=== PATIENT | male | born 1935 | race Caucasian/White ===

== ENCOUNTER 2018-01-12 14:00 | Inpatient (IN) | payer MEDICARE, OTHER ==
[~2018-01-12] VITALS: Ht 177.8 cm; Wt 83.9 kg
[2018-01-12 14:15] VITALS: BP 156/76
[2018-01-12 16:15] VITALS: BP 156/76
[2018-01-12] MEDS ORDERED: ACETAMINOPHEN 325 MG TABLET PO PRN (16:15)
[2018-01-12] MEDS: MetFORMIN HCL 500 MG TABLET PO SCH (20:18)
[2018-01-12] MEDS: ATORVASTATIN CALCIUM 40 MG TABLET PO SCH (20:19)
[2018-01-12] MEDS: DOCUSATE SODIUM 100 MG CAPSULE PO SCH (20:19)
[2018-01-12] MEDS: SENNA 187 MG TABLET PO SCH (20:19)
[2018-01-12] MEDS: ALFUZOSIN HCL 10 MG ER TABLET PO SCH (20:20)
[2018-01-12 21:15] LABS: APPEARANCE,URINE CLEAR (CLEAR); BILIRUBIN,URINE NEGATIVE (NEGATIVE); GLUCOSE, URINE (UA) NEGATIVE (NEGATIVE); KETONES,URINE TRACE mg/dL (NEGATIVE); LEUKOCYTE ESTERASE ,URINE NEGATIVE (NEGATIVE); NITRATE,URINE NEGATIVE (NEGATIVE); OCCULT BLOOD,URINE NEGATIVE (NEGATIVE); PROTEIN,URINE NEGATIVE (NEGATIVE); UROBILINOGEN,URINE 0.2 mg/dL (<=1.0)
[2018-01-12] MEDS ORDERED: DEXTROSE 50%-WATER 25 GM/50 ML SYRINGE IVP PRN (21:45)
[2018-01-12 23:03] LABS: GLUCOMETER DEV NAME(LOC) 2WR 1B; GLUCOSE,POINT OF CARE 113 MG/DL (70-110)
[2018-01-12 23:03] LABS: GLUCOMETER DEV NAME(LOC) 2WR 1B; GLUCOSE,POINT OF CARE 128 MG/DL (70-110)
[2018-01-13] MEDS ORDERED: MINERAL OIL/PETROLATUM 120 GM CREAM TP PRN (01:30)
[2018-01-13 03:00] VITALS: BP 150/83
[2018-01-13] MEDS: DOCUSATE SODIUM 283 MG/5 ML MINI-ENEMA PR PRN (05:40)
[2018-01-13 05:54] LABS: GLUCOMETER DEV NAME(LOC) 2WR 2E; GLUCOSE,POINT OF CARE 98 MG/DL (70-110)
[2018-01-13 06:56] LABS: BASOPHILS % (AUTO) 1.5 % (0.0-2.0); EOSINOPHILS % (AUTO) 2.9 % (1.0-6.0); HEMATOCRIT 44.5 % (41-53); HEMOGLOBIN 15.2 g/dL (13.5-17.5); LYMPHOCYTES # (AUTO) 1.3 K/uL (1.0-4.8); LYMPHOCYTES % (AUTO) 17.3 % (22.0-44.0); MEAN CORPUSCULAR HEMOGLOBIN 31.9 pg (26.0-34.0); MEAN CORPUSCULAR HGB CONC 34.1 G/dL (31.0-37.0); MEAN CORPUSCULAR VOLUME 94 fL (80-100); MONOCYTES # (AUTO) 0.9 K/uL (0.1-1.0); NEUTROPHILS # (AUTO) 5.2 K/uL (1.8-7.7); NEUTROPHILS % (AUTO) 66.3 % (40.0-70.0); PLATELET COUNT (AUTO) 246 K/uL (150-450); RED BLOOD CELL COUNT(AUTO) 4.76 MIL/uL (4.50-5.90); RED CELL DISTRIBUTION WIDTH 13.6 % (11.5-14.5)
[2018-01-13 07:38] LABS: ALANINE AMINOTRANSFERASE 28 U/L (12-78); ALBUMIN 3.2 g/dL (3.4-5.0); ALKALINE PHOSPHATASE 70 U/L (46-116); ANION GAP 9 mmol/L (8-16); ASPARTATE AMINOTRANSFERASE 27 U/L (15-37); BILIRUBIN,TOTAL 1.4 mg/dL (0.1-1.0); CALCIUM, TOTAL 8.8 mg/dL (8.8-10.5); CARBON DIOXIDE 27 mmol/L (22-29); CHLORIDE 105 mmol/L (98-107); CREATININE 1.01 mg/dL (0.60-1.30); GLUCOSE,RANDOM 117 mg/dL (70-110); POTASSIUM 3.7 mmol/L (3.5-5.1); SODIUM SERUM 141 mmol/L (136-145); TOTAL PROTEIN, SERUM 6.6 g/dL (6.4-8.2); UREA NITROGEN, BLOOD 11 mg/dL (7-18)
[2018-01-13 07:41] LABS: GLOMERULAR FILTR. RATE CALC > 60 mL/min (>60)
[2018-01-13 08:03] VITALS: BP 162/83
[2018-01-13] MEDS: PANTOPRAZOLE SODIUM 40 MG DR TABLET PO SCH (08:13)
[2018-01-13] MEDS: DOCUSATE SODIUM 100 MG CAPSULE PO SCH ×2 (08:13→20:16)
[2018-01-13] MEDS: MetFORMIN HCL 500 MG TABLET PO SCH ×2 (08:13→17:57)
[2018-01-13] MEDS: CLOPIDOGREL BISULFATE 75 MG TABLET PO SCH (08:13)
[2018-01-13] MEDS: ASPIRIN 81 MG CHEWABLE TABLET PO SCH (08:13)
[2018-01-13] MEDS: ONDANSETRON HCL 4 MG TABLET PO PRN (09:28)
[2018-01-13 12:18] LABS: GLUCOMETER DEV NAME(LOC) 2WR 2E; GLUCOSE,POINT OF CARE 123 MG/DL (70-110)
[2018-01-13 12:28] VITALS: BP 145/77
[2018-01-13 15:00] VITALS: BP 142/86
[2018-01-13 18:44] LABS: GLUCOMETER DEV NAME(LOC) 2WR 2E; GLUCOSE,POINT OF CARE 104 MG/DL (70-110)
[2018-01-13] MEDS: ALFUZOSIN HCL 10 MG ER TABLET PO SCH (20:16)
[2018-01-13] MEDS: SENNA 187 MG TABLET PO SCH (20:16)
[2018-01-13] MEDS: ATORVASTATIN CALCIUM 40 MG TABLET PO SCH (20:16)
[2018-01-13] MEDS: INSULIN LISPRO 100 UNITS/ML SQ PRN (20:20)
[2018-01-13 21:23] LABS: GLUCOMETER DEV NAME(LOC) 2WR 1B; GLUCOSE,POINT OF CARE 161 MG/DL (70-110)
[2018-01-14 05:44] VITALS: BP 136/56
[2018-01-14 06:49] LABS: GLUCOMETER DEV NAME(LOC) 2WR 2E; GLUCOSE,POINT OF CARE 127 MG/DL (70-110)
[2018-01-14 07:58] VITALS: BP 137/80
[2018-01-14] MEDS: MetFORMIN HCL 500 MG TABLET PO SCH ×2 (09:25→17:22)
[2018-01-14] MEDS: PANTOPRAZOLE SODIUM 40 MG DR TABLET PO SCH (09:25)
[2018-01-14] MEDS: DOCUSATE SODIUM 100 MG CAPSULE PO SCH ×2 (09:26→20:45)
[2018-01-14] MEDS: ASPIRIN 81 MG CHEWABLE TABLET PO SCH (09:26)
[2018-01-14] MEDS: CLOPIDOGREL BISULFATE 75 MG TABLET PO SCH (09:26)
[2018-01-14 12:39] LABS: GLUCOMETER DEV NAME(LOC) 2WR 1B; GLUCOSE,POINT OF CARE 143 MG/DL (70-110)
[2018-01-14] MEDS: INSULIN LISPRO 100 UNITS/ML SQ PRN (13:32)
[2018-01-14 15:31] VITALS: BP 146/82
[2018-01-14 18:19] LABS: GLUCOMETER DEV NAME(LOC) 2WR 2E; GLUCOSE,POINT OF CARE 117 MG/DL (70-110)
[2018-01-14] MEDS: SENNA 187 MG TABLET PO SCH (20:45)
[2018-01-14] MEDS: ALFUZOSIN HCL 10 MG ER TABLET PO SCH (20:45)
[2018-01-14] MEDS: ATORVASTATIN CALCIUM 40 MG TABLET PO SCH (20:45)
[2018-01-14 22:29] LABS: GLUCOMETER DEV NAME(LOC) 2WR 1B; GLUCOSE,POINT OF CARE 98 MG/DL (70-110)
[2018-01-15 05:20] VITALS: BP 139/76
[2018-01-15 06:09] LABS: GLUCOMETER DEV NAME(LOC) 2WR 1B; GLUCOSE,POINT OF CARE 114 MG/DL (70-110)
[2018-01-15 07:05] VITALS: BP 131/70
[2018-01-15] MEDS: DOCUSATE SODIUM 100 MG CAPSULE PO SCH (07:53)
[2018-01-15] MEDS: MetFORMIN HCL 500 MG TABLET PO SCH ×2 (07:53→17:00)
[2018-01-15] MEDS: CLOPIDOGREL BISULFATE 75 MG TABLET PO SCH (07:53)
[2018-01-15] MEDS: ASPIRIN 81 MG CHEWABLE TABLET PO SCH (07:53)
[2018-01-15] MEDS: PANTOPRAZOLE SODIUM 40 MG DR TABLET PO SCH (07:54)
[2018-01-15] MEDS: ONDANSETRON HCL 4 MG TABLET PO PRN (10:12)
[2018-01-15 10:40] VITALS: BP 156/75
[2018-01-15 12:30] VITALS: BP 124/74
[2018-01-15 12:48] LABS: GLUCOMETER DEV NAME(LOC) 2WR 1B; GLUCOSE,POINT OF CARE 131 MG/DL (70-110)
[2018-01-15 15:26] VITALS: BP 141/82
[2018-01-15 17:44] LABS: GLUCOMETER DEV NAME(LOC) 2WR 1B; GLUCOSE,POINT OF CARE 113 MG/DL (70-110)
[2018-01-15] MEDS: ATORVASTATIN CALCIUM 40 MG TABLET PO SCH (20:45)
[2018-01-15] MEDS: DOCUSATE SODIUM 250 MG CAPSULE PO SCH (20:45)
[2018-01-15] MEDS: ALFUZOSIN HCL 10 MG ER TABLET PO SCH (20:45)
[2018-01-15] MEDS: SENNA 187 MG TABLET PO SCH (20:45)
[2018-01-15 21:43] LABS: GLUCOMETER DEV NAME(LOC) 2WR 1B; GLUCOSE,POINT OF CARE 124 MG/DL (70-110)
[2018-01-16] MEDS ORDERED: ALFU10TA30 PO (02:25)
[2018-01-16] MEDS ORDERED: METO25 PO (02:25)
[2018-01-16] MEDS ORDERED: CALC-877 PO (02:25)
[2018-01-16] MEDS ORDERED: ATOR40TA28 PO (02:25)
[2018-01-16] MEDS ORDERED: METF-960 PO (02:25)
[2018-01-16] MEDS ORDERED: PANT40TA25 PO (02:25)
[2018-01-16] MEDS ORDERED: ERGO400C PO (02:25)
[2018-01-16] MEDS ORDERED: ASPI-1188 PO (02:25)
[2018-01-16] MEDS ORDERED: CLOP75 PO (02:25)
[2018-01-16] MEDS: DOCUSATE SODIUM 283 MG/5 ML MINI-ENEMA PR PRN (05:44)
[2018-01-16 05:48] VITALS: BP 126/71
[2018-01-16 05:59] LABS: GLUCOMETER DEV NAME(LOC) 2WR 1B; GLUCOSE,POINT OF CARE 99 MG/DL (70-110)
[2018-01-16] MEDS: ONDANSETRON HCL 4 MG TABLET PO PRN ×3 (06:15→15:57)
[2018-01-16 07:35] VITALS: BP 137/70
[2018-01-16] MEDS: CLOPIDOGREL BISULFATE 75 MG TABLET PO SCH (08:22)
[2018-01-16] MEDS: ASPIRIN 81 MG CHEWABLE TABLET PO SCH (08:22)
[2018-01-16] MEDS: MetFORMIN HCL 500 MG TABLET PO SCH ×2 (08:22→17:23)
[2018-01-16] MEDS: PANTOPRAZOLE SODIUM 40 MG DR TABLET PO SCH (08:22)
[2018-01-16] MEDS: DOCUSATE SODIUM 250 MG CAPSULE PO SCH ×2 (08:22→20:10)
[2018-01-16 10:50] VITALS: BP 122/69
[2018-01-16] MEDS: MECLIZINE HCL 25 MG TABLET PO PRN (10:54)
[2018-01-16 13:09] LABS: GLUCOMETER DEV NAME(LOC) 2WR 2E; GLUCOSE,POINT OF CARE 139 MG/DL (70-110)
[2018-01-16 16:18] VITALS: BP 123/73
[2018-01-16 17:49] LABS: GLUCOMETER DEV NAME(LOC) 2WR 1B; GLUCOSE,POINT OF CARE 127 MG/DL (70-110)
[2018-01-16] MEDS: ATORVASTATIN CALCIUM 40 MG TABLET PO SCH (20:10)
[2018-01-16] MEDS: SENNA 187 MG TABLET PO SCH (20:10)
[2018-01-16] MEDS: ALFUZOSIN HCL 10 MG ER TABLET PO SCH (20:10)
[2018-01-16 21:29] LABS: GLUCOMETER DEV NAME(LOC) 2WR 1B; GLUCOSE,POINT OF CARE 131 MG/DL (70-110)
[2018-01-17 06:00] VITALS: BP 122/53
[2018-01-17 06:03] LABS: GLUCOMETER DEV NAME(LOC) 2WR 2E; GLUCOSE,POINT OF CARE 96 MG/DL (70-110)
[2018-01-17 07:00] VITALS: BP 123/66
[2018-01-17] MEDS: PANTOPRAZOLE SODIUM 40 MG DR TABLET PO SCH (07:51)
[2018-01-17] MEDS: MECLIZINE HCL 25 MG TABLET PO PRN (07:51)
[2018-01-17] MEDS: DOCUSATE SODIUM 250 MG CAPSULE PO SCH ×2 (07:51→21:10)
[2018-01-17] MEDS: CLOPIDOGREL BISULFATE 75 MG TABLET PO SCH (07:51)
[2018-01-17] MEDS: MetFORMIN HCL 500 MG TABLET PO SCH ×3 (07:51→17:23)
[2018-01-17] MEDS: ASPIRIN 81 MG CHEWABLE TABLET PO SCH (07:52)
[2018-01-17 10:29] VITALS: BP 130/72
[2018-01-17 12:44] LABS: GLUCOMETER DEV NAME(LOC) 2WR 1B; GLUCOSE,POINT OF CARE 115 MG/DL (70-110)
[2018-01-17 15:36] VITALS: BP 159/80
[2018-01-17 17:44] LABS: GLUCOMETER DEV NAME(LOC) 2WR 1B; GLUCOSE,POINT OF CARE 117 MG/DL (70-110)
[2018-01-17] MEDS: ATORVASTATIN CALCIUM 40 MG TABLET PO SCH (21:10)
[2018-01-17] MEDS: SENNA 187 MG TABLET PO SCH (21:11)
[2018-01-17] MEDS: ALFUZOSIN HCL 10 MG ER TABLET PO SCH (21:11)
[2018-01-17] MEDS: INSULIN LISPRO 100 UNITS/ML SQ PRN (21:33)
[2018-01-17 21:38] LABS: GLUCOMETER DEV NAME(LOC) 2WR 1B; GLUCOSE,POINT OF CARE 153 MG/DL (70-110)
[2018-01-17 21:57] VITALS: BP 124/70
[2018-01-18 00:52] VITALS: BP 123/64
[2018-01-18 06:20] LABS: GLUCOMETER DEV NAME(LOC) 2WR 1B; GLUCOSE,POINT OF CARE 99 MG/DL (70-110)
[2018-01-18 08:10] VITALS: BP 110/74
[2018-01-18] MEDS: CLOPIDOGREL BISULFATE 75 MG TABLET PO SCH (09:14)
[2018-01-18] MEDS: ONDANSETRON HCL 4 MG TABLET PO PRN (09:14)
[2018-01-18] MEDS: PANTOPRAZOLE SODIUM 40 MG DR TABLET PO SCH (09:14)
[2018-01-18] MEDS: DOCUSATE SODIUM 250 MG CAPSULE PO SCH ×2 (09:15→21:23)
[2018-01-18] MEDS: ASPIRIN 81 MG CHEWABLE TABLET PO SCH (09:15)
[2018-01-18] MEDS: MetFORMIN HCL 500 MG TABLET PO SCH ×2 (09:15→16:57)
[2018-01-18] MEDS: INSULIN LISPRO 100 UNITS/ML SQ PRN ×3 (12:36→21:26)
[2018-01-18 13:09] LABS: GLUCOMETER DEV NAME(LOC) 2WR 2E; GLUCOSE,POINT OF CARE 117 MG/DL (70-110)
[2018-01-18 15:12] VITALS: BP 118/78
[2018-01-18 17:34] LABS: GLUCOMETER DEV NAME(LOC) 2WR 1B; GLUCOSE,POINT OF CARE 109 MG/DL (70-110)
[2018-01-18 21:15] VITALS: BP 139/82
[2018-01-18] MEDS: ALFUZOSIN HCL 10 MG ER TABLET PO SCH (21:24)
[2018-01-18] MEDS: ATORVASTATIN CALCIUM 40 MG TABLET PO SCH (21:24)
[2018-01-18] MEDS: SENNA 187 MG TABLET PO SCH (21:24)
[2018-01-18 22:49] LABS: GLUCOMETER DEV NAME(LOC) 2WR 2E; GLUCOSE,POINT OF CARE 144 MG/DL (70-110)
[2018-01-19 06:06] VITALS: BP 152/81
[2018-01-19 06:30] LABS: GLUCOMETER DEV NAME(LOC) 2WR 1B; GLUCOSE,POINT OF CARE 105 MG/DL (70-110)
[2018-01-19 07:30] VITALS: BP 116/66
[2018-01-19] MEDS: MetFORMIN HCL 500 MG TABLET PO SCH ×2 (07:54→17:33)
[2018-01-19] MEDS: DOCUSATE SODIUM 250 MG CAPSULE PO SCH ×2 (07:58→20:38)
[2018-01-19] MEDS: PANTOPRAZOLE SODIUM 40 MG DR TABLET PO SCH (07:58)
[2018-01-19] MEDS: CLOPIDOGREL BISULFATE 75 MG TABLET PO SCH (07:58)
[2018-01-19] MEDS: ASPIRIN 81 MG CHEWABLE TABLET PO SCH (07:58)
[2018-01-19] MEDS: ONDANSETRON HCL 4 MG TABLET PO PRN (09:26)
[2018-01-19 13:18] LABS: GLUCOMETER DEV NAME(LOC) 2WR 2E; GLUCOSE,POINT OF CARE 132 MG/DL (70-110)
[2018-01-19] MEDS: POLYETHYLENE GLYCOL 3350 17 GM PACKET PO SCH (15:14)
[2018-01-19 15:16] VITALS: BP 134/79
[2018-01-19 18:44] LABS: GLUCOMETER DEV NAME(LOC) 2WR 2E; GLUCOSE,POINT OF CARE 118 MG/DL (70-110)
[2018-01-19] MEDS: SENNA 187 MG TABLET PO SCH (20:38)
[2018-01-19] MEDS: ATORVASTATIN CALCIUM 40 MG TABLET PO SCH (20:38)
[2018-01-19] MEDS: ALFUZOSIN HCL 10 MG ER TABLET PO SCH (20:38)
[2018-01-19 23:37] VITALS: BP 133/69
[2018-01-20 05:54] LABS: GLUCOMETER DEV NAME(LOC) 2WR 2E; GLUCOSE,POINT OF CARE 115 MG/DL (70-110)
[2018-01-20] MEDS: DOCUSATE SODIUM 250 MG CAPSULE PO SCH ×2 (08:38→20:43)
[2018-01-20] MEDS: ASPIRIN 81 MG CHEWABLE TABLET PO SCH (08:38)
[2018-01-20] MEDS: CLOPIDOGREL BISULFATE 75 MG TABLET PO SCH (08:38)
[2018-01-20] MEDS: PANTOPRAZOLE SODIUM 40 MG DR TABLET PO SCH (08:38)
[2018-01-20] MEDS: POLYETHYLENE GLYCOL 3350 17 GM PACKET PO SCH (08:39)
[2018-01-20] MEDS: MetFORMIN HCL 500 MG TABLET PO SCH ×2 (08:39→17:45)
[2018-01-20 09:44] VITALS: BP 148/79
[2018-01-20 16:50] VITALS: BP 128/74
[2018-01-20 17:59] LABS: GLUCOMETER DEV NAME(LOC) 2WR 2E; GLUCOSE,POINT OF CARE 115 MG/DL (70-110)
[2018-01-20] MEDS: ATORVASTATIN CALCIUM 40 MG TABLET PO SCH (20:42)
[2018-01-20] MEDS: ALFUZOSIN HCL 10 MG ER TABLET PO SCH (20:42)
[2018-01-20] MEDS: SENNA 187 MG TABLET PO SCH (20:43)
[2018-01-21 00:45] VITALS: BP 134/79
[2018-01-21] MEDS: DOCUSATE SODIUM 283 MG/5 ML MINI-ENEMA PR PRN (05:34)
[2018-01-21 05:43] LABS: GLUCOMETER DEV NAME(LOC) 2WR 2E; GLUCOSE,POINT OF CARE 107 MG/DL (70-110)
[2018-01-21 07:44] VITALS: BP 131/72
[2018-01-21] MEDS: POLYETHYLENE GLYCOL 3350 17 GM PACKET PO SCH (08:27)
[2018-01-21] MEDS: CLOPIDOGREL BISULFATE 75 MG TABLET PO SCH (08:27)
[2018-01-21] MEDS: DOCUSATE SODIUM 250 MG CAPSULE PO SCH ×2 (08:28→20:35)
[2018-01-21] MEDS: ASPIRIN 81 MG CHEWABLE TABLET PO SCH (08:28)
[2018-01-21] MEDS: MetFORMIN HCL 500 MG TABLET PO SCH ×2 (08:28→18:01)
[2018-01-21] MEDS: PANTOPRAZOLE SODIUM 40 MG DR TABLET PO SCH (08:28)
[2018-01-21 15:48] VITALS: BP 133/80
[2018-01-21] MEDS: ALFUZOSIN HCL 10 MG ER TABLET PO SCH (20:35)
[2018-01-21] MEDS: ATORVASTATIN CALCIUM 40 MG TABLET PO SCH (20:35)
[2018-01-21] MEDS: SENNA 187 MG TABLET PO SCH (20:35)
[2018-01-21 21:54] LABS: GLUCOMETER DEV NAME(LOC) 2WR 2E; GLUCOSE,POINT OF CARE 102 MG/DL (70-110)
[2018-01-22 04:22] VITALS: BP 143/76
[2018-01-22 06:14] LABS: GLUCOMETER DEV NAME(LOC) 2WR 2E; GLUCOSE,POINT OF CARE 115 MG/DL (70-110)
[2018-01-22 07:29] VITALS: BP 134/77
[2018-01-22] MEDS: POLYETHYLENE GLYCOL 3350 17 GM PACKET PO SCH (10:16)
[2018-01-22] MEDS: PANTOPRAZOLE SODIUM 40 MG DR TABLET PO SCH (10:17)
[2018-01-22] MEDS: MetFORMIN HCL 500 MG TABLET PO SCH ×2 (10:17→17:30)
[2018-01-22] MEDS: ASPIRIN 81 MG CHEWABLE TABLET PO SCH (10:17)
[2018-01-22] MEDS: DOCUSATE SODIUM 250 MG CAPSULE PO SCH ×2 (10:17→20:25)
[2018-01-22] MEDS: CLOPIDOGREL BISULFATE 75 MG TABLET PO SCH (10:18)
[2018-01-22 15:25] VITALS: BP 128/84
[2018-01-22 19:13] LABS: GLUCOMETER DEV NAME(LOC) 2WR 1B; GLUCOSE,POINT OF CARE 131 MG/DL (70-110)
[2018-01-22 20:20] VITALS: BP 133/76
[2018-01-22] MEDS: SENNA 187 MG TABLET PO SCH (20:25)
[2018-01-22] MEDS: ALFUZOSIN HCL 10 MG ER TABLET PO SCH (20:26)
[2018-01-22] MEDS: ATORVASTATIN CALCIUM 40 MG TABLET PO SCH (20:26)
[2018-01-23 00:10] VITALS: BP 139/76
[2018-01-23 06:09] LABS: GLUCOMETER DEV NAME(LOC) 2WR 1B; GLUCOSE,POINT OF CARE 112 MG/DL (70-110)
[2018-01-23 07:15] VITALS: BP 130/77
[2018-01-23] MEDS: POLYETHYLENE GLYCOL 3350 17 GM PACKET PO SCH (08:31)
[2018-01-23] MEDS: MetFORMIN HCL 500 MG TABLET PO SCH ×2 (08:32→17:12)
[2018-01-23] MEDS: ASPIRIN 81 MG CHEWABLE TABLET PO SCH (08:32)
[2018-01-23] MEDS: PANTOPRAZOLE SODIUM 40 MG DR TABLET PO SCH (08:32)
[2018-01-23] MEDS: CLOPIDOGREL BISULFATE 75 MG TABLET PO SCH (08:32)
[2018-01-23] MEDS: DOCUSATE SODIUM 250 MG CAPSULE PO SCH ×2 (08:32→20:24)
[2018-01-23 15:37] VITALS: BP 132/79
[2018-01-23 19:44] LABS: GLUCOMETER DEV NAME(LOC) 2WR 2E; GLUCOSE,POINT OF CARE 111 MG/DL (70-110)
[2018-01-23] MEDS: ATORVASTATIN CALCIUM 40 MG TABLET PO SCH (20:23)
[2018-01-23] MEDS: SENNA 187 MG TABLET PO SCH (20:24)
[2018-01-23] MEDS: ALFUZOSIN HCL 10 MG ER TABLET PO SCH (20:25)
[2018-01-23 23:00] VITALS: BP 151/79
[2018-01-24 06:24] LABS: GLUCOMETER DEV NAME(LOC) 2WR 1B; GLUCOSE,POINT OF CARE 107 MG/DL (70-110)
[2018-01-24 06:57] LABS: ANION GAP 8 mmol/L (8-16); CALCIUM, TOTAL 8.9 mg/dL (8.8-10.5); CARBON DIOXIDE 26 mmol/L (22-29); CHLORIDE 105 mmol/L (98-107); CREATININE 0.92 mg/dL (0.60-1.30); GLUCOSE,RANDOM 112 mg/dL (70-110); POTASSIUM 3.9 mmol/L (3.5-5.1); SODIUM SERUM 139 mmol/L (136-145); UREA NITROGEN, BLOOD 9 mg/dL (7-18)
[2018-01-24 06:59] LABS: GLOMERULAR FILTR. RATE CALC > 60 mL/min (>60)
[2018-01-24 07:05] VITALS: BP 125/66
[2018-01-24] MEDS: DOCUSATE SODIUM 250 MG CAPSULE PO SCH ×2 (07:55→20:40)
[2018-01-24] MEDS: MetFORMIN HCL 500 MG TABLET PO SCH ×2 (07:55→17:28)
[2018-01-24] MEDS: ASPIRIN 81 MG CHEWABLE TABLET PO SCH (07:55)
[2018-01-24] MEDS: PANTOPRAZOLE SODIUM 40 MG DR TABLET PO SCH (07:55)
[2018-01-24] MEDS: POLYETHYLENE GLYCOL 3350 17 GM PACKET PO SCH (07:55)
[2018-01-24] MEDS: CLOPIDOGREL BISULFATE 75 MG TABLET PO SCH (07:55)
[2018-01-24 16:22] VITALS: BP 134/88
[2018-01-24 19:03] LABS: GLUCOMETER DEV NAME(LOC) 2WR 2E; GLUCOSE,POINT OF CARE 134 MG/DL (70-110)
[2018-01-24] MEDS: SENNA 187 MG TABLET PO SCH (20:40)
[2018-01-24] MEDS: ATORVASTATIN CALCIUM 40 MG TABLET PO SCH (20:40)
[2018-01-24] MEDS: ALFUZOSIN HCL 10 MG ER TABLET PO SCH (20:40)
[2018-01-25 00:34] VITALS: BP 134/79
[2018-01-25 05:44] LABS: GLUCOMETER DEV NAME(LOC) 2WR 1B; GLUCOSE,POINT OF CARE 108 MG/DL (70-110)
[2018-01-25 07:00] VITALS: BP 126/71
[2018-01-25] MEDS: DOCUSATE SODIUM 250 MG CAPSULE PO SCH ×2 (07:55→20:42)
[2018-01-25] MEDS: ASPIRIN 81 MG CHEWABLE TABLET PO SCH (07:55)
[2018-01-25] MEDS: POLYETHYLENE GLYCOL 3350 17 GM PACKET PO SCH (07:55)
[2018-01-25] MEDS: MetFORMIN HCL 500 MG TABLET PO SCH ×2 (07:55→17:20)
[2018-01-25] MEDS: PANTOPRAZOLE SODIUM 40 MG DR TABLET PO SCH (07:55)
[2018-01-25] MEDS: CLOPIDOGREL BISULFATE 75 MG TABLET PO SCH (07:55)
[2018-01-25 15:30] VITALS: BP 113/67
[2018-01-25 19:48] LABS: GLUCOMETER DEV NAME(LOC) 2WR 1B; GLUCOSE,POINT OF CARE 98 MG/DL (70-110)
[2018-01-25] MEDS: ALFUZOSIN HCL 10 MG ER TABLET PO SCH (20:42)
[2018-01-25] MEDS: SENNA 187 MG TABLET PO SCH (20:42)
[2018-01-25] MEDS: ATORVASTATIN CALCIUM 40 MG TABLET PO SCH (20:42)
[2018-01-26 02:00] VITALS: BP 136/74
[2018-01-26] MEDS ORDERED: DOCU250C91 PO (04:06)
[2018-01-26] MEDS ORDERED: MIRALAX PO (04:06)
[2018-01-26] MEDS ORDERED: INSU100V SQ (04:07)
[2018-01-26 06:05] LABS: GLUCOMETER DEV NAME(LOC) 2WR 2E; GLUCOSE,POINT OF CARE 103 MG/DL (70-110)
[2018-01-26 07:20] VITALS: BP 115/61
[2018-01-26] MEDS: PANTOPRAZOLE SODIUM 40 MG DR TABLET PO SCH (08:15)
[2018-01-26] MEDS: DOCUSATE SODIUM 250 MG CAPSULE PO SCH ×2 (08:15→20:36)
[2018-01-26] MEDS: POLYETHYLENE GLYCOL 3350 17 GM PACKET PO SCH (08:15)
[2018-01-26] MEDS: ASPIRIN 81 MG CHEWABLE TABLET PO SCH (08:16)
[2018-01-26] MEDS: CLOPIDOGREL BISULFATE 75 MG TABLET PO SCH (08:16)
[2018-01-26] MEDS: MetFORMIN HCL 500 MG TABLET PO SCH ×2 (08:16→17:10)
[2018-01-26 15:47] VITALS: BP 130/73
[2018-01-26 17:39] LABS: GLUCOMETER DEV NAME(LOC) 2WR 2E; GLUCOSE,POINT OF CARE 142 MG/DL (70-110)
[2018-01-26] MEDS: ATORVASTATIN CALCIUM 40 MG TABLET PO SCH (20:36)
[2018-01-26] MEDS: ALFUZOSIN HCL 10 MG ER TABLET PO SCH (20:36)
[2018-01-26] MEDS: SENNA 187 MG TABLET PO SCH (20:36)
[2018-01-27] VITALS: BP 129/74
[2018-01-27 06:09] LABS: GLUCOMETER DEV NAME(LOC) 2WR 2E; GLUCOSE,POINT OF CARE 117 MG/DL (70-110)
[2018-01-27 07:25] VITALS: BP 137/54
[2018-01-27] MEDS ORDERED: INSU100V SQ (07:36)
[2018-01-27] MEDS: ASPIRIN 81 MG CHEWABLE TABLET PO SCH (08:57)
[2018-01-27] MEDS: DOCUSATE SODIUM 250 MG CAPSULE PO SCH (08:57)
[2018-01-27] MEDS: MetFORMIN HCL 500 MG TABLET PO SCH (08:57)
[2018-01-27] MEDS: PANTOPRAZOLE SODIUM 40 MG DR TABLET PO SCH (08:57)
[2018-01-27] MEDS: CLOPIDOGREL BISULFATE 75 MG TABLET PO SCH (08:57)
[2018-01-27] MEDS: POLYETHYLENE GLYCOL 3350 17 GM PACKET PO SCH ×2 (08:57→10:27)
== END 2018-01-27 10:30 | disposition home health service (06) | DRG 65 ==
LOC: 2WR 14:00
PROVIDERS: ADMIT Physical Medicine & Rehabilitation; ATTEND Physical Medicine & Rehabilitation
DX: I63.9 Cerebral infarction, unspecified (principal); G81.94 Hemiplegia, unspecified affecting left nondominant side; E11.9 Type 2 diabetes mellitus without complications; E78.5 Hyperlipidemia, unspecified; I10 Essential (primary) hypertension; I25.10 Atherosclerotic heart disease of native coronary artery without angina pectoris; K21.9 Gastro-esophageal reflux disease without esophagitis; N31.9 Neuromuscular dysfunction of bladder, unspecified; N40.0 Benign prostatic hyperplasia without lower urinary tract symptoms; K40.90 Unilateral inguinal hernia, without obstruction or gangrene, not specified as recurrent; K59.00 Constipation, unspecified; R26.0 Ataxic gait; Z95.5 Presence of coronary angioplasty implant and graft; R42 Dizziness and giddiness
CPT/HCPCS: 87081; 92507; 92508; 92523; 93005; 97110; 97112; 97116; 97150; 97162; 97166; 97530; 97535; 99366; Q0162